=== PATIENT | male | born 1960 | race Caucasian/White ===

== ENCOUNTER 2021-04-26 16:10 | Outpatient (CLI) | payer OTHER, SELFPAY ==
[2021-04-26 17:35] LABS: Erythrocyte Sedimentation Rate 1 mm/hr (0-20)
[2021-04-26 17:37] LABS: Absolute Lymphocyte Count 2.39 X10^3/uL (0.83-4.51); Absolute Neutrophil Count 4.9 X10^3/uL (2.0-7.7); Basophil# 0.06 X10^3/uL; Basophil% 0.7 % (0-1); Eosinophil# 0.29 X10^3/uL; Eosinophils% 3.5 % (0-5); Hematocrit 39.9 % (40-54); Hemoglobin 13.9 g/dL (13.0-16.5); Lymphocyte # 2.39 X10^3/ul (0.83-4.51); Lymphocyte % 28.7 % (19-41); Mean Corp Hgb Conc 34.8 g/dL (32-36); Mean Corpuscular Hgb 31.4 pg (27.0-32.0); Mean Corpuscular Volume 90.1 fL (80-94); Mean Platelet Vol. 11.4 fl (6.2-12.0); Monocyte# 0.68 X10^3/uL; Monocyte% 8.2 % (0-10); NRBC Flagged by Analyzer 0 % (0-5); Neutrophil # 4.87 X10^3/uL (2.7-7.7); Neutrophil % 58.4 % (47-70); Platelet Count 226 K/mm3 (150-450); RBC Distribution Width CV 12.2 % (11.6-14.6); RBC Distribution Width SD 39.8 fl (35.1-43.9); Red Blood Count 4.43 M/mm3 (4.6-6.2); White Blood Count 8.3 K/mm3 (4.4-11.0)
[2021-04-26 17:39] LABS: ALB/GLOB Ratio 0.9 RATIO (0.9-2.4); AST(SGOT) 19 U/L (15-37); Alanine Aminotransfer ALT/SGPT 23 U/L (16-61); Albumin, Serum 3.6 g/dL (3.2-5.0); Alkaline Phosphatase 61 U/L (45-117); Anion Gap 4 (5-15); BUN 9 mg/dL (7-18); BUN/Creat Ratio 10.7 RATIO (10-20); CRP < 2.90 mg/L (0.0-3.0); Calcium,Total 8.9 mg/dL (8.5-10.1); Chloride 104 mmol/L (98-107); Creatinine, Serum 0.84 mg/dL (0.70-1.30); EST Glomerular Filtration Rate 99 mL/min (>60); Est Glom Filt Rate - Afr Amer 120 mL/min (>60); Glucose 84 mg/dL (74-106); Potassium 3.7 mmol/L (3.5-5.1); Protein, Total 7.6 g/dL (6.4-8.2); Sodium Level 137 mmol/L (136-145); Thyroid Stim Hormone (TSH) 3.04 uIU/mL (0.358-3.74)
[2021-04-28 16:11] LABS: Endomysial Antibody IgA Negative (Negative)
[2021-04-28 19:09] LABS: Immunoglobulin A 280 mg/dL (61-437); t-Transglutaminase IgA <2 U/mL (0-3)
== END 2021-04-26 23:59 | disposition home or self-care (01) ==
LOC: LAB 16:13
PROVIDERS: PCP Student in an Organized Health Care Education/Training Program; Referring Provider Nurse Practitioner Adult Health; Visit Provider Nurse Practitioner Adult Health
DX: K52.9 Noninfective gastroenteritis and colitis, unspecified (principal)
CPT/HCPCS: 36415; 80053; 82784; 83516; 84443; 85025; 85652; 86140; 86255

== ENCOUNTER 2021-04-28 15:38 | Outpatient (CLI) | payer OTHER, SELFPAY | END 2021-04-28 23:59 | disposition home or self-care (01) | LOC: LAB 15:39 | PROVIDERS: Nurse Practitioner Adult Health; PCP Student in an Organized Health Care Education/Training Program; Visit Provider Internal Medicine Gastroenterology | DX: K52.9 Noninfective gastroenteritis and colitis, unspecified (principal) | CPT/HCPCS: 36415 ==

== ENCOUNTER 2021-05-23 17:01 | Outpatient (CLI) | payer OTHER, SELFPAY ==
[2021-05-26 18:41] LABS: Calprotectin, Stool 20 ug/g (0-120)
== END 2021-05-23 23:59 | disposition home or self-care (01) ==
LOC: LABSPEC 17:02
PROVIDERS: PCP Student in an Organized Health Care Education/Training Program; Visit Provider Nurse Practitioner Adult Health
DX: K52.9 Noninfective gastroenteritis and colitis, unspecified (principal)
CPT/HCPCS: 83630; 83993; 87493

== ENCOUNTER 2021-07-04 08:31 | Day surgery (SDC) | payer OTHER, SELFPAY ==
[2021-07-04] VITALS (7 sets, daily range): BP systolic 104–140; BP diastolic 80–91; PULSE 55–70; RESP 16; TEMP 36.2–37.1; O2SAT 100; BMI 22.1
--- NOTE | 2021-07-04 | COLBX_PTH ---
PATIENT: PRECIOUS LIAO LOC: [facility] U#:[id number] AGE/SX: 61/M ROOM: RE07/04/[address]: Dr. Jesse Weller DO : 1960 BED: DIS: 07/04/2021 SPEC #: [id number] RECD: 07/04/21 13:45 STATUS: ZHENG NALDO #: [id number] NAAV: 07/04/21 00:[address]: Jesse Weller DEPT: SURGICAL PATHOLOGY RECD BY: Scott Smith ENTERED: 07/05/21 07:57 SP TYPE: COLON BX OTHR DR: Dr. Franko Mann DO Tissues: A - Duodenum, NOS B - Gastric mucous membrane C - Esophageal mucous membrane D - Ileum, NOS E - COLON BIOPSY Procedures: Trichrome (control) Special Stain Group II Surgery Specimen Level IV Alcian Blue/PAS (control) HEADER OPERATION: Colonoscopy with biopsy, [place] [place] DIAGNOSIS: Chronic diarrhea, Crohn?s disease, GERD TISSUE SUBMITTED: A ? Duodenum biopsy, B ? Gastric body biopsy, C ? Distal esophagus biopsy, D ? Terminal ileum, E ? Random colon MICROSCOPIC DIAGNOSIS A. Duodenum, biopsy: Fragments of duodenal mucosa, no pathologic diagnosis. B. Gastric body, biopsy: Mild gastritis. See microscopic description and comment. C. 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 Chronic inflammation. Negative for dysplasia. See comment. D. Terminal ileum, biopsy: A fragment of small intestinal mucosa, no pathologic diagnosis. E. Colon, random biopsy: Fragments of colonic mucosa with changes consistent with collagenous colitis. See comment. SJ:sharda 07/06/2021 COMMENT B. The results of immunohistochemistry for Helicobacter pylori will be reported separately ([id number]). C. Immunohistochemistry ([id number]) for P53 and Ki-67 will be performed and results will be reported separately. Alcian blue/PAS stain with matched control is used in the evaluation of the specimen. E. Trichrome stain with matched control is used in the evaluation of the specimen and shows diffuse thickening of subepithelial collagen band. MICROSCOPIC DESCRIPTION Slides are reviewed. B. The specimen shows fragments of gastric mucosa with chronic inflammatory cell infiltrates in the lamina propria consisting of lymphocytes and plasma cells, consistent with mild chronic gastritis. GROSS DESCRIPTION A - Received in fixative is one container labeled with the patient's name and designated duodenum biopsy. The specimen consists of multiple irregular fragments of light echeverria soft tissue that in aggregate measure 1.2 x 0.4 x 0.1 cm. The specimen is totally submitted in one cassette. B - Received in fixative is one container labeled with the patient's name and designated gastric body biopsy. The specimen consists of multiple irregular fragments of light echeverria soft tissue that in aggregate measure 1.5 x 0.3 x 0.1 cm. The specimen is totally submitted in one cassette. C - Received in fixative is one container labeled with the patient's name and designated distal esophagus biopsy. The specimen consists of two irregular fragments of light echeverria soft tissue that in aggregate measure 0.6 x 0.3 x 0.1 cm. The specimen is totally submitted in one cassette. D - Received in fixative is one container labeled with the patient's name and designated terminal ileum biopsy. The specimen consists of one irregular fragment of light echeverria soft tissue that measures 0.5 x 0.3 x 0.1 cm. The specimen is totally submitted in one cassette. E - Received in fixative is one container labeled with the patient's name and designated random colon biopsy. The specimen consists of multiple irregular fragments of light echeverria soft tissue that in aggregate measure 2 x 0.5 x 0.1 cm. The specimen is totally submitted in one cassette. / IVY:sharda 07/05/2021 TC:3 CPT: 99712 x5, 42858 x2
[2021-07-04] MEDS: Lactated Ringers 1,000 ML 15 ML IV (09:09)
--- NOTE | 2021-07-04 09:29 | PCM.HP.BLA ---
History and Physical Date of Admission: 07/04/21 NILA LIAO, is a 61 M who presents to the office today for diarrhea that began approx 10 wks ago. Only watery stools since this began suddenly. He thought it might have been due to a meal he ate at a restaurant that contained oil, he follows a vegan diet and consumes almost no oil. He has had urgency associated with the diarrhea. He did have some nighttime diarrhea initially. He had mild nausea as well as bloating, gas and some abdominal pain. All the symptoms other than the watery stool have resolved once he cut out gluten from his diet. Diarrhea no longer related to meals since he went gluten-free. No prior history of chronic diarrhea. He has vomited once during the past 10 weeks, that was probably due to food poisoning he thinks. No hematochezia or melena. He recently had a negative Cologuard. He tried Imodium about 7 weeks ago, no relief of his symptoms. He is not having any acid reflux, heartburn, dysphagia. He has a prior history of difficulty swallowing; that was evaluated years ago at the [facility]. He was told to take Nexium. No issues with dysphagia over the past 5 years, he attributes that to changes in his diet and lifestyle. He intentionally lost 50 pounds over the last year and a half. There is a strong family history of inflammatory bowel disease; multiple relatives on the maternal side have had Crohn's disease. ROS Const Constitutional: Positive for fatigue; No fever(s), headache(s), weight change, sleep problems, abnormal sleep pattern or change in appetite ENT ENT: No headache(s), difficulty swallowing, hoarseness or sore throat Resp Respiratory: No cough, hemoptysis or shortness of breath Cardio Cardiology: No chest pain at rest or generalized swelling Gastro GI: Positive for abdominal pain, bloating, change in bowel habits, diarrhea and nausea/dyspepsia; No belching, change in stool character, coffee ground emesis, constipation, cramping, heartburn, difficulty swallowing, feeling full early, excessive flatus, incontinent of stools, Vomiting blood/hematemesis, Blood in stool, loose stools, Black,tarry stools, pain with swallowing or vomiting Musc Musculoskeletal: No joint pain, back pain, joint swelling, numbness or tingling Skin Skin: Positive for rash (sees dermatology); No itchy eyes Neuro Neurology: No behavioral changes, confusion, headache(s), numbness or tingling Psych Psychiatric: No abnormal sleep pattern, No anxiety, No behavioral changes, No change in appetite, No confusion and No depression Endo Endocrine: Positive for fatigue; No cold intolerance, heat intolerance, increased thirst/drinking or weight change Aller/Imm Allergy/Immunologic: No food intolerance or itchy eyes Zak/Lymp Hematologic/Lymphatic: No easy bleeding, easy bruising or enlarged lymph nodes Exam Const General: cooperative, healthy appearing, comfortable, no acute distress, well developed and well groomed HENMT Head: normal to inspection Neck Neck: normal visual inspection and supple Chest Chest palpation & inspection: normal inspection of the chest Resp Effort & Inspection: normal respiratory effort GI Inspection: normal to inspection Auscultation: normal bowel sounds Palpation: soft and tender (minimally tender lower abd) Extrem General: no pedal edema Quality Reporting Tobacco Screening ([facility] 138) Smoking Status: Current some day smoker Assessment and Plan Assessment and Plan (1) Chronic diarrhea: Status: Chronic (2) FH: Crohn's disease: Status: Acute (3) Hx of gastroesophageal reflux (GERD): Status: Acute Orders: Orders: Comprehensive Metabolic Profil Today K52.9 CRP Today K52.9 Thyroid Stim Hormone (TSH) Today K52.9 CBC W/Diff, Automated Today K52.9 Erythrocyte Sed Rate Today K52.9 Calprotectin, Stool Today K52.9 Ova and Parasites 8623 Today K52.9 CDIFF (PCR) Today K52.9 ENTERIC PATHOGEN PANEL STOOL Today K52.9 Stool Lactoferrin/WBC Today K52.9 Celiac Disease Profile Today K52.9 Giardia Lamblia, Stool EIA Today K52.9 Miscellaneous Lab Procedure Today K52.9 Plan: 61-year-old otherwise healthy male with 10 weeks of watery diarrhea. His other GI complaints improved significantly with a gluten-free diet. Differential diagnosis includes infectious diarrhea, celiac disease, inflammatory bowel disease, microscopic colitis. Patient will get blood work done today, stool tests ordered. He is scheduled for upper and lower endoscopies in early June. I will call him with lab results, will treat accordingly or do further evaluation as needed. I have re-examined the patient. There are no clinical changes since date of exam.
--- NOTE | 2021-07-04 09:45 | IMM_PTH ---
PATIENT: PRECIOUS LIAO LOC: [facility] U#:[id number] AGE/SX: 61/M ROOM: RE07/04/[address]: Dr. Jesse Weller DO : 1960 BED: DIS: 07/04/2021 SPEC #: [id number] RECD: 07/05/21 08:44 STATUS: ZHENG REWilfredo #: [id number] NAVA: 07/04/21 09:[address]: Jesse Weller DEPT: IMMUNOHISTOCHEMISTRY RECD BY: Jennifer Madison ENTERED: 07/05/21 08:46 SP TYPE: IMMUNO OTHR DR: Dr. Franko Mann DO Tissues: B - Stomach, NOS C - Esophagus, NOS Procedures: H Pylori (initial) P53 (initial) KI-67 (add) PHYSICIAN & INSTITUTION [place] [id number] SPECIMEN INFORMATION: Tissue Source: B ? Gastric body biopsy, C ? Distal esophagus biopsy Clinical Info: Chronic diarrhea, Crohn?s disease, GERD Specimen Number: [id number] B & C CPT code: 70380 x2, 10232 METHODOLOGY: Deparaffinized sections of prefer/formalin-fixed tissue or PAP/DQ stained slides are incubated with monoclonal/polyclonal antibodies/oligonucleotide probes. Localization is made via biotin free immunoperoxidase method. Appropriate controls are performed and reacted as expected. Results on target cell population are indicated in the following table: RESULTS: ANTIBODY / CLONE RESULT Block B H Pylori (polyclonal) negative Block C P53 (DO-7) negative Ki-67 (30-9) positive, very low These tests were developed and their performance characteristics determined by [facility]. They may not have been cleared or approved by the U.S. Food and Drug Administration. The FDA has determined that such clearance or approval is not necessary. The above immunohistochemical/dualISH markers are ordered and reviewed by the Pathologist. INTERPRETATION: B. Gastric body, biopsy: Negative for Helicobacter pylori organisms. C. Distal esophagus, biopsy: Negative for dysplasia. SJ:sharda 07/07/2021
--- NOTE | 2021-07-04 10:24 | OP.EGD_ITS ---
Patient Name: Lexa Chavez Procedure Date: 07/04/2021 9:27 AM Date of : 1960 Age: 61 Procedure: Upper GI endoscopy Indications: Functional Dyspepsia Providers: Jesse Weller DO Referring MD: Franko Mann Medicines: Monitored Anesthesia Care Patient Profile: This is a 61 year old male. Refer to note in patient chart for documentation of history and physical. Patient has symptoms of chronic dyspepsia and chronic nausea. Complications: No immediate complications. Procedure: Pre-Anesthesia Assessment: - Prior to the procedure, a History and Physical was performed, and patient medications and allergies were reviewed. The patient is competent. The risks and benefits of the procedure and the sedation options and risks were discussed with the patient. All questions were answered and informed consent was obtained. Patient identification and proposed procedure were verified by the physician in the pre-procedure area. Mental Status Examination: alert and oriented. Airway Examination: normal oropharyngeal airway and neck mobility. Respiratory Examination: clear to auscultation. CV Examination: normal. Prophylactic Antibiotics: The patient does not require prophylactic antibiotics. Prior Anticoagulants: The patient has taken no previous anticoagulant or antiplatelet agents. ASA Grade Assessment: II - A patient with mild systemic disease. After reviewing the risks and benefits, the patient was deemed in satisfactory condition to undergo the procedure. The anesthesia plan was to use moderate sedation / analgesia (conscious sedation). Immediately prior to administration of medications, the patient was re-assessed for adequacy to receive sedatives. The heart rate, respiratory rate, oxygen saturations, blood pressure, adequacy of pulmonary ventilation, and response to care were monitored throughout the procedure. The physical status of the patient was re-assessed after the procedure. After obtaining informed consent, the endoscope was passed under direct vision. Throughout the procedure, the patient's blood pressure, pulse, and oxygen saturations were monitored continuously. The colonoscope was introduced through the mouth, and advanced to the second part of duodenum. The upper GI endoscopy was accomplished without difficulty. The patient tolerated the procedure well. Scope In: 9:44:29 AM Scope Out: 9:51:36 AM Total Procedure Duration Time 0 hours 7 minutes 7 seconds Findings: The Z-line was irregular and was found 39 cm from the incisors. Biopsies were taken with a cold forceps for histology. Verification of patient identification for the specimen was done. Estimated blood loss was minimal. Patchy mild mucosal variance characterized by congestion was found in the gastric body. Biopsies were taken with a cold forceps for histology. Verification of patient identification for the specimen was done. Estimated blood loss was minimal. Patchy moderately erythematous mucosa without active bleeding and with no stigmata of bleeding was found in the first portion of the duodenum and in the second portion of the duodenum. Biopsies were taken with a cold forceps for histology. Verification of patient identification for the specimen was done. Estimated blood loss was minimal. Impression: - Z-line irregular, 39 cm from the incisors. Biopsied. - Gastric mucosal variant. Biopsied. - Erythematous duodenopathy. Biopsied. Recommendation: - Discharge patient to home. - Resume previous diet. - Continue present medications. - Await pathology results. - Repeat upper endoscopy in 1 year for surveillance based on pathology results. - Return to GI office. Procedure Code(s): --- Professional --- 85583, Esophagogastroduodenoscopy, flexible, transoral; with biopsy, single or multiple CPT copyright 2017 [employer]. All rights reserved. The codes documented in this report are preliminary and upon french edge operator review may be revised to meet current compliance requirements. Jesse Weller DO 07/04/2021 10:23:42 AM This report has been signed electronically. Number of Addenda: 1 Note Initiated On: 07/04/2021 9:27 AM Addendum Number: 1 Addendum Date: 11/25/2021 6:26:56 AM MAC was used as sedation for this procedure. Jesse Weller DO 11/25/2021 6:27:00 AM This report has been signed electronically.
--- NOTE | 2021-07-04 10:25 | OP.CCLET_ITS ---
11/25/2021 Franko Mann [address] [place] [address] Re : Upper GI endoscopy procedure for Lexa Chavez Dear Dr. Mann This procedure was performed on Sunday, July 04, 2021. My impressions and recommendations are as follows: Impressions : - Z-line irregular, 39 cm from the incisors. Biopsied. - Gastric mucosal variant. Biopsied. - Erythematous duodenopathy. Biopsied. Recommendations : - Discharge patient to home. - Resume previous diet. - Continue present medications. - Await pathology results. - Repeat upper endoscopy in 1 year for surveillance based on pathology results. - Return to GI office. My findings are described in the full procedure note, which is enclosed. If I can be of further assistance, please feel free to contact me at . Sincerely, Jesse Weller, 07/04/2021 10:23:42 AM This report has been signed electronically.
--- NOTE | 2021-07-04 10:37 | OP.COLON_ITS ---
Patient Name: Lexa Chavez Procedure Date: 07/04/2021 9:53 AM Date of : 1960 Age: 61 Procedure: Colonoscopy Indications: Evaluation of unexplained GI bleeding, Unexplained iron deficiency anemia Providers: Jesse Weller DO Referring MD: Franko Mann Patient Profile: This is a 61 year old male. Refer to note in patient chart for documentation of history and physical. Patient has symptoms of chronic dyspepsia and chronic nausea. Last Colonoscopy: several years ago. Complications: No immediate complications. Procedure: Pre-Anesthesia Assessment: - Prior to the procedure, a History and Physical was performed, and patient medications and allergies were reviewed. The patient is competent. The risks and benefits of the procedure and the sedation options and risks were discussed with the patient. All questions were answered and informed consent was obtained. Patient identification and proposed procedure were verified by the physician in the pre-procedure area. Mental Status Examination: alert and oriented. Airway Examination: normal oropharyngeal airway and neck mobility. Respiratory Examination: clear to auscultation. CV Examination: normal. Prophylactic Antibiotics: The patient does not require prophylactic antibiotics. Prior Anticoagulants: The patient has taken no previous anticoagulant or antiplatelet agents. ASA Grade Assessment: II - A patient with mild systemic disease. After reviewing the risks and benefits, the patient was deemed in satisfactory condition to undergo the procedure. The anesthesia plan was to use moderate sedation / analgesia (conscious sedation). Immediately prior to administration of medications, the patient was re-assessed for adequacy to receive sedatives. The heart rate, respiratory rate, oxygen saturations, blood pressure, adequacy of pulmonary ventilation, and response to care were monitored throughout the procedure. The physical status of the patient was re-assessed after the procedure. After I obtained informed consent, the scope was passed under direct vision. Throughout the procedure, the patient's blood pressure, pulse, and oxygen saturations were monitored continuously. The colonoscope was introduced through the anus and advanced to the terminal ileum. The colonoscopy was performed without difficulty. The patient tolerated the procedure well. The quality of the bowel preparation was good. Scope In: 9:55:12 AM Scope Withdrawal Time 0 hours 12 minutes 45 seconds Scope Out: 10:17:01 AM Total Procedure Duration Time 0 hours 21 minutes 49 seconds Findings: Hemorrhoids were found on perianal exam. An area of mildly congested mucosa was found in the sigmoid colon, at the splenic flexure, at the hepatic flexure and in the cecum. Biopsies were taken with a cold forceps for histology. Verification of patient identification for the specimen was done. Estimated blood loss was minimal. The terminal ileum appeared normal. Biopsies were taken with a cold forceps for histology. Verification of patient identification for the specimen was done. Estimated blood loss was minimal. Impression: - Hemorrhoids found on perianal exam. - Congested mucosa in the sigmoid colon, at the splenic flexure, at the hepatic flexure and in the cecum. Biopsied. - The examined portion of the ileum was normal. Biopsied. Recommendation: - Written discharge instructions were provided to the patient. - The signs and symptoms of potential delayed complications were discussed with the patient. - Patient has a contact number available for emergencies. - Return to normal activities tomorrow. - Resume previous diet. - Continue present medications. - Await pathology results. - Repeat colonoscopy in 2 months for surveillance. - Return to GI office in 1 week. Procedure Code(s): --- Professional --- 46971, Colonoscopy, flexible; with biopsy, single or multiple CPT copyright 2017 [employer]. All rights reserved. The codes documented in this report are preliminary and upon cosmetology professor review may be revised to meet current compliance requirements. Jesse Weller DO 07/04/2021 10:36:49 AM This report has been signed electronically. Number of Addenda: 1 Note Initiated On: 07/04/2021 9:53 AM Addendum Number: 1 Addendum Date: 11/25/2021 6:27:07 AM MAC was used as sedation for this procedure. Jesse Weller DO 11/25/2021 6:27:13 AM This report has been signed electronically.
--- NOTE | 2021-07-04 10:38 | OP.CCLET_ITS ---
11/25/2021 Franko Mann [address] [place] [address] Re : Colonoscopy procedure for Lexa Chavez Dear Dr. Mann This procedure was performed on Sunday, July 04, 2021. My impressions and recommendations are as follows: Impressions : - Hemorrhoids found on perianal exam. - Congested mucosa in the sigmoid colon, at the splenic flexure, at the hepatic flexure and in the cecum. Biopsied. - The examined portion of the ileum was normal. Biopsied. Recommendations : - Written discharge instructions were provided to the patient. - The signs and symptoms of potential delayed complications were discussed with the patient. - Patient has a contact number available for emergencies. - Return to normal activities tomorrow. - Resume previous diet. - Continue present medications. - Await pathology results. - Repeat colonoscopy in 2 months for surveillance. - Return to GI office in 1 week. My findings are described in the full procedure note, which is enclosed. If I can be of further assistance, please feel free to contact me at . Sincerely, Jesse Weller, 07/04/2021 10:36:49 AM This report has been signed electronically.
== END 2021-07-04 11:16 | disposition home or self-care (01) ==
LOC: EN 08:33 → AC 08:56
PROVIDERS: PCP Student in an Organized Health Care Education/Training Program; Referring Provider Student in an Organized Health Care Education/Training Program; Visit Provider Internal Medicine Gastroenterology
PROC: 0DJD8ZZ Inspection of Lower Intestinal Tract, Via Natural or Artificial Opening Endoscopic (ICD-10-PCS; CPT 45378; principal; 2021-07-04 09:40)
DX: K52.831 Collagenous colitis (principal); K50.90 Crohn's disease, unspecified, without complications; K22.70 Barrett's esophagus without dysplasia; K29.50 Unspecified chronic gastritis without bleeding; K64.9 Unspecified hemorrhoids; K63.89 Other specified diseases of intestine; K31.89 Other diseases of stomach and duodenum; F17.200 Nicotine dependence, unspecified, uncomplicated; K30 Functional dyspepsia; F12.90 Cannabis use, unspecified, uncomplicated; Z79.899 Other long term (current) drug therapy
CPT/HCPCS: 45380; 43239; 87426; 88305; 88313; 88341; 88342; J7120; J2405

== ENCOUNTER 2022-07-25 12:31 | Day surgery (SDC) | payer OTHER, SELFPAY ==
--- NOTE | 2022-07-25 | IMM_PTH ---
PATIENT: PRECIOUS LIAO LOC: [facility] U#:[id number] AGE/SX: 62/M ROOM: RE07/25/[address]: Dr. Jesse Weller DO : 1960 BED: DIS: 07/25/2022 SPEC #: [id number] RECD: 07/27/22 13:18 STATUS: ZHENG REQ #: [id number] NAVA: 07/25/22 00:[address]: Jesse Weller DEPT: IMMUNOHISTOCHEMISTRY RECD BY: Jennifer Madison ENTERED: 07/27/22 13:19 SP TYPE: IMMUNO OTHR DR: Dr. Franko Mnan DO Tissues: A - Esophagus, NOS Procedures: P53 (initial) KI-67 (add) PHYSICIAN & INSTITUTION [place] [id number] SPECIMEN INFORMATION: Tissue Source: A ? Distal esophagus Clinical Info: Collagenous colitis Specimen Number: [id number] CPT code: 97615, 44246 METHODOLOGY: Deparaffinized sections of prefer/formalin-fixed tissue or PAP/DQ stained slides are incubated with monoclonal/polyclonal antibodies/oligonucleotide probes. Localization is made via biotin free immunoperoxidase method. Appropriate controls are performed and reacted as expected. Results on target cell population are indicated in the following table: RESULTS: ANTIBODY / CLONE RESULT Block A P53 (DO-7) negative, wild type pattern Ki-67 (30-9) positive, low These tests were developed and their performance characteristics determined by [facility]. They may not have been cleared or approved by the U.S. Food and Drug Administration. The FDA has determined that such clearance or approval is not necessary. The above immunohistochemical/dualISH markers are ordered and reviewed by the Pathologist. INTERPRETATION: A. Distal esophagus, biopsy: No evidence of dysplasia. AM:sharda 07/28/2022
--- NOTE | 2022-07-25 | ESO_PTH ---
PATIENT: PRECIOUS LIAO LOC: [facility] U#:[id number] AGE/SX: 62/M ROOM: RE07/25/[address]: Dr. Jesse Weller DO : 1960 BED: DIS: 07/25/2022 SPEC #: [id number] RECD: 07/25/22 15:14 STATUS: ZHENG NALDO #: [id number] NAVA: 07/25/22 00:[address]: Jesse Weller DEPT: SURGICAL PATHOLOGY RECD BY: Scott Smith ENTERED: 07/26/22 09:38 SP TYPE: IGNACIA STOREY DR: Dr. Franko Mann DO Tissues: A - Esophagus, NOS B - Duodenum, NOS C - Ileum, NOS D - COLON BIOPSY Procedures: Trichrome (control) Special Stain Group II Surgery Specimen Level IV Alcian Blue/PAS (control) HEADER OPERATION: Colonoscopy, EGD ([facility] [place]), biopsy PRE-OP DIAGNOSIS: Collagenous colitis TISSUE SUBMITTED: A ? Distal esophagus biopsy, B ? Duodenum biopsy, C ? Terminal ileum, D ? Random colonic biopsies MICROSCOPIC DIAGNOSIS A. Distal esophagus, biopsy: Gastroesophageal junction with mild chronic inflammation. Extensive goblet cell metaplasia consistent with Groves's esophagus. No evidence of dysplasia. See comment. B. Duodenum, biopsy: No pathologic change. C. Terminal ileum, biopsy: No pathologic change. D. Colon, random biopsy: Consistent with collagenous colitis. See comment. AM:sharda 07/27/2022 COMMENT A. Alcian blue/PAS stain with matched control supports the above diagnosis. Immunohistochemistry ([id number]) for P53 and Ki-67 will be performed and results will be reported separately. B. Trichrome stain with matched control supports the above diagnosis. MICROSCOPIC DESCRIPTION Slides are reviewed. GROSS DESCRIPTION A - Received in fixative is one container labeled with the patient's name and designated distal esophagus biopsy. The specimen consists of two irregular fragments of light echeverria soft tissue that in aggregate measure 0.8 x 0.4 x 0.1 cm. The specimen is totally submitted in one cassette. B - Received in fixative is one container labeled with the patient's name and designated duodenum biopsy. The specimen consists of multiple irregular fragments of light echeverria soft tissue that in aggregate measure 1.0 x 0.3 x 0.1 cm. The specimen is totally submitted in one cassette. C - Received in fixative is one container labeled with the patient's name and designated terminal ileum biopsy. The specimen consists of two irregular fragments of light echeverria soft tissue that in aggregate measure 0.8 x 0.5 x 0.1 cm. The specimen is totally submitted in one cassette. D - Received in fixative is one container labeled with the patient's name and designated random colon biopsy. The specimen consists of multiple irregular fragments of light echeverria soft tissue that in aggregate measure 2.0 x 0.5 x 0.1 cm. The specimen is totally submitted in one cassette. / SJ:rg 07/26/2022 TC:3 CPT: 21120 x4
[2022-07-25 12:50] VITALS: BP 109/79; PULSE 66; RESP 16; TEMP 36.8; O2SAT 100; BMI 23.0
[2022-07-25] MEDS: Lactated Ringers 1,000 ML 15 ML IV (12:53)
--- NOTE | 2022-07-25 13:33 | HP.PCM_ITS ---
History and Physical Date of Admission: 07/25/22 61 M who presents to the office today for f/u diarrhea due to collagenous colitis.? Diarrhea had been well controlled on colestipol 1 g twice daily, then he had a viral illness 1.5 months ago which flared up with diarrhea.? He did some research, and increased colestipol to 2 g twice daily which he reports is very effective.? He is wondering about 5 g packet of colestipol instead of having to take 4 pills a day.? His weight is stable.? He eats a healthy diet and exercises regularly. Lexa established with this clinic .03.19 for evaluation of watery and urgent diarrhea with onset ten weeks prior. Initial symptoms included nausea, bloating, flatulence and abdominal pain; these had resolved by time of presentation. History of dysphagia evaluated by [facility] who started him on Nexium. Dysphagia symptoms resolved which he attributes to diet and lifestyle changes. Biochemical workup .03.19 CBC, CMP, CRP, TSH, celiac all WNL. Stool testing calprotectin, lactoferrin, C.Difficile WNL. Ova/parasites and enteric pathogens not performed r/t inadequate amount for testing. EGD and colonoscopy performed 07.04.21. EGD found irregular Z-line 39cm from incisors; distal esophageal inflammation with Groves?s esophagus changes without dysplasia; gastric mucosal variant (gastritis); erythematous duodenopathy. Colonoscopy found hemorrhoids on perianal exam; congested mucosa of sigmoid colon, splenic flexure, hepatic flexure and cecum with pathology changes consistent with collagenous colitis. ROS Const Constitutional: Positive for fatigue; No fever(s), frequent falls, headache(s) or weight change ENT ENT: No headache(s) or difficulty swallowing Cardio Cardiology: No leg pain with exertion Gastro GI: Positive for bloating, change in bowel habits, diarrhea and excessive flat us; No abdominal pain, constipation, heartburn, difficulty swallowing, Vomiting blood/hematemesis, Blood in stool, nausea/dyspepsia or vomiting Musc Musculoskeletal: No abnormal gait, joint pain, back pain, joint swelling, muscle cramps, muscle weakness, numbness, stiffness, tingling, Arthritis, sciatica, leg pain at night or leg pain with exertion Skin Skin: No dry skin, lesions, itchy eyes or rash Neuro Neurology: No abnormal gait, dizziness, frequent falls, headache(s), numbness, tingling, tremor(s), Increased tone in limbs, paralysis or seizures Psych Psychiatric: No anxiety, No depression, No paranoia, No Behavioral Problems, No Compulsive Behavior, No hyperactivity, No inattentiveness, No obsessions/compulsions, No Temper Tantrums and No suicidal ideation Endo Endocrine: Positive for fatigue; No weight change Aller/Imm Allergy/Immunologic: No itchy eyes Zak/Lymp Hematologic/Lymphatic: No easy bleeding or easy bruising Exam Const General: cooperative and healthy appearing Nutritional Appearance: average body habitus Orientation: alert, awake and oriented x3 Quality Reporting Tobacco Screening ([facility] 138) Smoking Status: Current some day smoker Assessment and Plan Assessment and Plan (1) Collagenous colitis: ?Status:?Acute ?Plan: 61-year-old male with diarrhea due to collagenous colitis which is controlled with 2 g of colestipol twice daily.? He would like to try the 5 g packet of colestipol so prescription is provided He will undergo an EGD and colonoscopy due to refractory symptoms and worsening chronic diarrhea despite traditional therapy for severe collagenous colitis. He will also undergo an upper endoscopy because of a history of gastroesophageal reflux disease. He was explained alternatives, risk, benefits include not withstanding bleeding, infection, sepsis, perforation, need for emergent surgery . He will have an ASA of 3.
[2022-07-25 14:13] VITALS: BP 109/79; BP 90/48; PULSE 66; RESP 16; TEMP 36.2; O2SAT 100
[2022-07-25 14:14] VITALS: BP 109/79; BP 87/48; PULSE 64; RESP 16; O2SAT 100
--- NOTE | 2022-07-25 14:19 | OP.CCLET_ITS ---
07/25/2022 Franko Mann [address] [place] [address] Re : Upper GI endoscopy procedure for Lexa Chavez Dear Dr. Mann This procedure was performed on Monday, July 25, 2022. My impressions and recommendations are as follows: Impressions : - Esophageal mucosal changes consistent with short-segment Groves's esophagus. Biopsied. - Small hiatal hernia. - Erythematous duodenopathy. Biopsied. Recommendations : - Discharge patient to home. - Resume previous diet. - Continue present medications. - Await pathology results. - Repeat upper endoscopy in 1 year for surveillance. - Pantoprazole 40 mg daily My findings are described in the full procedure note, which is enclosed. If I can be of further assistance, please feel free to contact me at . Sincerely, Jesse Weller, 07/25/2022 2:18:54 PM This report has been signed electronically.
--- NOTE | 2022-07-25 14:19 | OP.EGD_ITS ---
Patient Name: Leax Chavez Procedure Date: 07/25/2022 1:36 PM Date of : 1960 Age: 62 Procedure: Upper GI endoscopy Indications: Functional Dyspepsia, Follow-up of Groves's esophagus Providers: Jesse Weller DO Referring MD: Jesse Weller DO Medicines: Monitored Anesthesia Care Patient Profile: This is a 62 year old male. Refer to note in patient chart for documentation of history and physical. Patient has symptoms. He is status post EGD for Groves's biopsy one year ago. Complications: No immediate complications. Procedure: Pre-Anesthesia Assessment: - Prior to the procedure, a History and Physical was performed, and patient medications and allergies were reviewed. The risks and benefits of the procedure and the sedation options and risks were discussed with the patient. All questions were answered and informed consent was obtained. Patient identification and proposed procedure were verified by the physician in the pre-procedure area. Mental Status Examination: alert and oriented. Airway Examination: normal oropharyngeal airway and neck mobility. Respiratory Examination: clear to auscultation. CV Examination: normal. Prophylactic Antibiotics: The patient does not require prophylactic antibiotics. Prior Anticoagulants: The patient has taken no previous anticoagulant or antiplatelet agents. After reviewing the risks and benefits, the patient was deemed in satisfactory condition to undergo the procedure. The anesthesia plan was to use monitored anesthesia care (MAC). Immediately prior to administration of medications, the patient was re-assessed for adequacy to receive sedatives. The heart rate, respiratory rate, oxygen saturations, blood pressure, adequacy of pulmonary ventilation, and response to care were monitored throughout the procedure. The physical status of the patient was re-assessed after the procedure. After obtaining informed consent, the endoscope was passed under direct vision. Throughout the procedure, the patient's blood pressure, pulse, and oxygen saturations were monitored continuously. The colonoscope was introduced through the mouth, and advanced to the second part of duodenum. The upper GI endoscopy was accomplished without difficulty. The patient tolerated the procedure well. Scope In: 1:44:54 PM Scope Out: 1:49:06 PM Total Procedure Duration Time 0 hours 4 minutes 12 seconds Findings: There were esophageal mucosal changes consistent with short-segment Groves's esophagus present in the lower third of the esophagus. There was also mild LA grade a erosive esophagitis seen. The maximum longitudinal extent of these mucosal changes was 2 cm in length. Mucosa was biopsied with a cold forceps for histology in a targeted manner at intervals of 1 cm in the lower third of the esophagus. One specimen bottle was sent to pathology. Verification of patient identification for the specimen was done. Estimated blood loss was minimal. A small hiatal hernia was present. No other significant abnormalities were identified in a careful examination of the stomach. Patchy mildly erythematous mucosa without active bleeding and with no stigmata of bleeding was found in the duodenal bulb. Biopsies were taken with a cold forceps for histology. Verification of patient identification for the specimen was done. Estimated blood loss was minimal. Impression: - Esophageal mucosal changes consistent with short-segment Groves's esophagus. Biopsied. - Small hiatal hernia. - Erythematous duodenopathy. Biopsied. Recommendation: - Discharge patient to home. - Resume previous diet. - Continue present medications. - Await pathology results. - Repeat upper endoscopy in 1 year for surveillance. - Pantoprazole 40 mg daily Procedure Code(s): --- Professional --- 14074, Esophagogastroduodenoscopy, flexible, transoral; with biopsy, single or multiple CPT copyright 2017 [employer]. All rights reserved. The codes documented in this report are preliminary and upon smoking tobacco packing machine hand review may be revised to meet current compliance requirements. Jesse Weller DO 07/25/2022 2:18:54 PM This report has been signed electronically. Number of Addenda: 0 Note Initiated On: 07/25/2022 1:36 PM
[2022-07-25 14:20] VITALS: BP 109/79; BP 118/72; PULSE 60; RESP 16; O2SAT 100
--- NOTE | 2022-07-25 14:22 | OP.COLON_ITS ---
Patient Name: Lexa Chavez Procedure Date: 07/25/2022 1:49 PM Date of : 1960 Age: 62 Procedure: Colonoscopy Indications: Chronic diarrhea Providers: Jesse Weller DO Referring MD: Jesse Weller DO Medicines: Monitored Anesthesia Care Patient Profile: This is a 62 year old male. Refer to note in patient chart for documentation of history and physical. Patient has symptoms. He is status post EGD for Groves's biopsy one year ago. He is status post colonoscopy for biopsy one year ago. Last Colonoscopy: 1 year ago. Complications: No immediate complications. Procedure: Pre-Anesthesia Assessment: - Prior to the procedure, a History and Physical was performed, and patient medications and allergies were reviewed. The risks and benefits of the procedure and the sedation options and risks were discussed with the patient. All questions were answered and informed consent was obtained. Patient identification and proposed procedure were verified by the physician in the pre-procedure area. Mental Status Examination: alert and oriented. Airway Examination: normal oropharyngeal airway and neck mobility. Respiratory Examination: clear to auscultation. CV Examination: normal. Prophylactic Antibiotics: The patient does not require prophylactic antibiotics. Prior Anticoagulants: The patient has taken no previous anticoagulant or antiplatelet agents. After reviewing the risks and benefits, the patient was deemed in satisfactory condition to undergo the procedure. The anesthesia plan was to use monitored anesthesia care (MAC). Immediately prior to administration of medications, the patient was re-assessed for adequacy to receive sedatives. The heart rate, respiratory rate, oxygen saturations, blood pressure, adequacy of pulmonary ventilation, and response to care were monitored throughout the procedure. The physical status of the patient was re-assessed after the procedure. After I obtained informed consent, the scope was passed under direct vision. Throughout the procedure, the patient's blood pressure, pulse, and oxygen saturations were monitored continuously. The colonoscope was introduced through the anus and advanced to the terminal ileum. The colonoscopy was performed without difficulty. The patient tolerated the procedure well. The quality of the bowel preparation was adequate. Scope In: 1:50:58 PM Scope Withdrawal Time 0 hours 8 minutes 45 seconds Scope Out: 2:07:47 PM Total Procedure Duration Time 0 hours 16 minutes 49 seconds Findings: The perianal and digital rectal examinations were normal. A few small-mouthed diverticula were found in the recto-sigmoid colon. An area of mildly congested mucosa was found in the descending colon, in the transverse colon and in the ascending colon. Biopsies for histology were taken with a cold forceps from the entire colon for evaluation of microscopic colitis. Verification of patient identification for the specimen was done. Estimated blood loss was minimal. The terminal ileum appeared normal. Biopsies were taken with a cold forceps for histology. Verification of patient identification for the specimen was done. Estimated blood loss was minimal. Impression: - Diverticulosis in the recto-sigmoid colon. - Congested mucosa in the descending colon, in the transverse colon and in the ascending colon. Biopsied. - The examined portion of the ileum was normal. Biopsied. Recommendation: - Discharge patient to home. - Resume previous diet. - Continue present medications. - Await pathology results. - Repeat colonoscopy in 1 year for surveillance. Procedure Code(s): --- Professional --- 00218, Colonoscopy, flexible; with biopsy, single or multiple CPT copyright 2017 [employer]. All rights reserved. The codes documented in this report are preliminary and upon switch operators supervisor review may be revised to meet current compliance requirements. Jesse Weller DO 07/25/2022 2:22:42 PM This report has been signed electronically. Number of Addenda: 0 Note Initiated On: 07/25/2022 1:49 PM
--- NOTE | 2022-07-25 14:23 | OP.CCLET_ITS ---
07/25/2022 Franko Mann [address] [place] [address] Re : Colonoscopy procedure for Lexa Chavez Dear Dr. Mann This procedure was performed on Monday, July 25, 2022. My impressions and recommendations are as follows: Impressions : - Diverticulosis in the recto-sigmoid colon. - Congested mucosa in the descending colon, in the transverse colon and in the ascending colon. Biopsied. - The examined portion of the ileum was normal. Biopsied. Recommendations : - Discharge patient to home. - Resume previous diet. - Continue present medications. - Await pathology results. - Repeat colonoscopy in 1 year for surveillance. My findings are described in the full procedure note, which is enclosed. If I can be of further assistance, please feel free to contact me at . Sincerely, Jesse Weller, 07/25/2022 2:22:42 PM This report has been signed electronically.
[2022-07-25 14:27] VITALS: BP 109/79; BP 120/75; PULSE 58; RESP 16; TEMP 36.2; O2SAT 100
[2022-07-25 14:50] VITALS: BP 109/79
== END 2022-07-25 14:58 | disposition home or self-care (01) ==
LOC: EN 12:32 → AC 12:33
PROVIDERS: PCP Student in an Organized Health Care Education/Training Program; Referring Provider Internal Medicine Gastroenterology; Visit Provider Internal Medicine Gastroenterology
PROC: 0DJD8ZZ Inspection of Lower Intestinal Tract, Via Natural or Artificial Opening Endoscopic (ICD-10-PCS; CPT 45378; principal; 2022-07-25 13:25)
DX: K22.70 Barrett's esophagus without dysplasia (principal); K52.831 Collagenous colitis; F17.200 Nicotine dependence, unspecified, uncomplicated; K57.90 Diverticulosis of intestine, part unspecified, without perforation or abscess without bleeding; K44.9 Diaphragmatic hernia without obstruction or gangrene; Z79.899 Other long term (current) drug therapy; Z87.19 Personal history of other diseases of the digestive system
CPT/HCPCS: 45380; 43239; 88305; 88313; 88341; 88342; J7120; J2405

== ENCOUNTER 2023-07-09 05:29 | Day surgery (SDC) | payer OTHER, SELFPAY ==
--- NOTE | 2023-07-09 | IMM_PTH ---
PATIENT: PRECIOUS LIAO LOC: EN U#:[id number] AGE/SX: 63/M ROOM: RE07/09/[address]: Dr. Jesse Weller DO : 1960 BED: DIS: 07/09/2023 SPEC #: [id number] RECD: 07/11/23 08:37 STATUS: ZHENG REWilfredo #: [id number] NAVA: 07/09/23 00:[address]: Jesse Weller DEPT: IMMUNOHISTOCHEMISTRY RECD BY: Long Jhaveri ENTERED: 07/11/23 08:37 SP TYPE: IMMUNO OTHR DR: Dr. Franko Mann DO Tissues: Esophagus, NOS Procedures: P53 (initial) KI-67 (add) PHYSICIAN & INSTITUTION [place] [address] SPECIMEN INFORMATION: Tissue Source: Distal esophagus biopsy Clinical Info: Collagenous colitis, Groves's esophagus Specimen Number: [id number] CPT code: 70308,45049 METHODOLOGY: Deparaffinized sections of prefer/formalin-fixed tissue or PAP/DQ stained slides are incubated with monoclonal/polyclonal antibodies/oligonucleotide probes. Localization is made via biotin free immunoperoxidase method. Appropriate controls are performed and reacted as expected. Results on target cell population are indicated in the following table: RESULTS: ANTIBODY / CLONE RESULT P53 (DO-7) negative (null pattern) Ki-67 (30-9) positive, low These tests were developed and their performance characteristics determined by [facility]. They may not have been cleared or approved by the U.S. Food and Drug Administration. The FDA has determined that such clearance or approval is not necessary. The above immunohistochemical/dualISH markers are ordered and reviewed by the Pathologist. INTERPRETATION: Distal esophagus, biopsy: Negative for dysplasia. IVY/ 07/11/23
[2023-07-09 06:11] VITALS: BP 130/93; PULSE 62; RESP 17; TEMP 36.5; O2SAT 99; BMI 25.5
[2023-07-09] MEDS: Lactated Ringers 1,000 ML 15 ML IV (06:14)
--- NOTE | 2023-07-09 06:30 | ESO_PTH ---
PATIENT: PRECIOUS LIAO LOC: EN U#:[id number] AGE/SX: 63/M ROOM: RE07/09/[address]: Dr. Jesse Weller DO : 1960 BED: DIS: 07/09/2023 SPEC #: [id number] RECD: 07/09/23 11:08 STATUS: ZHENG NALDO #: [id number] NAVA: 07/09/23 06:[address]: Jesse Weller DEPT: SURGICAL PATHOLOGY RECD BY: Zhen Alexis ENTERED: 07/09/23 13:34 SP TYPE: IGNACIA STOREY DR: Dr. Franko Mann DO Tissues: Esophagus, NOS Procedures: Special Stain Group II Surgery Specimen Level IV Alcian Blue/PAS (control) HEADER OPERATION: Colonoscopy, EGD with biopsy PRE-OP DIAGNOSIS: Collagenous colitis, Groves's esophagus TISSUE SUBMITTED: Distal esophagus biopsy MICROSCOPIC DIAGNOSIS Distal esophagus, biopsy: Fragments of gastroesophageal mucosa with focal intestinal metaplasia (goblet cell metaplasia), consistent with Groves's esophagus. Chronic inflammation. Negative for dysplasia. See comment. IVY/ 07/10/23 COMMENT Alcian blue/PAS stain with matched control is used in the evaluation of the specimen. Immunohistochemistry ([id number]) for P53 and Ki-67 will be performed and results will be reported separately. The specimen predominantly consists of gastric mucosa. MICROSCOPIC DESCRIPTION Slides are reviewed. GROSS DESCRIPTION Received in fixative is one container labeled with the patient's name and designated Distal esophagus biopsy. The specimen consists of multiple irregular fragments of light echeverria soft tissue that in aggregate measure 1.5 x 1.0 x 0.1 cm. The specimen is totally submitted in one cassette. DOTTY/ 07/09/2023 TC:5 CPT:73827,07415
--- NOTE | 2023-07-09 06:51 | HP.PCM_ITS ---
History and Physical Date of Admission: 07/09/23 Chief Complaint: f/u collagenous colitis Details: PRECIOUS LIAO, is a 62 M who presents to the office today for f/u EGD and colonoscopy which were indicated for hx Groves's esophagus and collagenous colitis. 06/2022 EGD is again positive for Groves's esophagus, negative dysplasia. I thought he was on a PPI but he wasn't, so he is now taking pantoprazole 40 mg qam. 06/2022 Colonoscopy is again positive for collagenous colitis. No pathology in TI or duodenum. He has done lots of research on both conditions. Takes VH3 probiotic. No longer needs colestipol or cholestyramine. Bowels are normal. Has Fodzyme he will try so he can eat onions, garlic etc His weight is stable.? He eats a healthy diet and exercises regularly. ROS Const Constitutional: No fatigue ENT ENT: No difficulty swallowing Gastro GI: No abdominal pain, belching, bloating, change in bowel habits, change in stool character, coffee ground emesis, constipation, cramping, diarrhea, heartburn, difficulty swallowing, feeling full early, excessive flatus, incontinent of stools, Vomiting blood/hematemesis, Blood in stool, loose stools, Black,tarry stools, nausea/dyspepsia, pain with swallowing, vomiting or other Musc Musculoskeletal: No joint pain Skin Skin: No yellowing of the eye or itchy eyes Psych Psychiatric: No anxiety and No depression Endo Endocrine: No fatigue Aller/Imm Allergy/Immunologic: No itchy eyes Zak/Lymp Hematologic/Lymphatic: No easy bleeding or easy bruising Exam Const General: cooperative, healthy appearing and comfortable Orientation: alert, awake and oriented x3 Quality Reporting Tobacco Screening ([facility] 138) Smoking Status: Current some day smoker Assessment and Plan Assessment and Plan (1) Collagenous colitis: Status: Chronic Plan: Now controlled with diet Dr Weller recommends repeat colonoscopy one yr (2) Groves esophagus: Status: Chronic Plan: Reviewed endoscopy findings Pantoprazole 40 mg qam repeat egd one yr Medications: Changed From pantoprazole 40 mg PO DAILY 30 tabs 3RF To pantoprazole 40 mg PO QAM 90 tabs 3RF Discontinued pantoprazole Discontinued Reason: Duplicate Order 40 mg PO DAILY 30 tabs 2RF I have examined the patient and the H&P has been reviewed. There are no clinical changes since date of exam.
[2023-07-09 07:25] VITALS: BP 130/93; BP 94/50; PULSE 62; RESP 12; TEMP 36.2; O2SAT 99
[2023-07-09 07:30] VITALS: BP 100/56; BP 130/93; PULSE 59; RESP 18; O2SAT 100
--- NOTE | 2023-07-09 07:30 | OP.EGD_ITS ---
Patient Name: Lexa Chavez Procedure Date: 07/09/2023 6:25 AM Date of : 1960 Age: 63 Procedure: Upper GI endoscopy Indications: Heartburn, Groves's esophagus Providers: Jesse Weller DO Referring MD: Franko Mann Medicines: Monitored Anesthesia Care Patient Profile: This is a 63 year old male. Refer to note in patient chart for documentation of history and physical. Patient has symptoms of chronic cough and chronic heartburn. Complications: No immediate complications. Procedure: Pre-Anesthesia Assessment: - Prior to the procedure, a History and Physical was performed, and patient medications and allergies were reviewed. The risks and benefits of the procedure and the sedation options and risks were discussed with the patient. All questions were answered and informed consent was obtained. Patient identification and proposed procedure were verified by the physician in the pre-procedure area. Mental Status Examination: normal. Prophylactic Antibiotics: The patient does not require prophylactic antibiotics. Prior Anticoagulants: The patient has taken no anticoagulant or antiplatelet agents. After reviewing the risks and benefits, the patient was deemed in satisfactory condition to undergo the procedure. The anesthesia plan was to use monitored anesthesia care (MAC). Immediately prior to administration of medications, the patient was re-assessed for adequacy to receive sedatives. The heart rate, respiratory rate, oxygen saturations, blood pressure, adequacy of pulmonary ventilation, and response to care were monitored throughout the procedure. The physical status of the patient was re-assessed after the procedure. After obtaining informed consent, the endoscope was passed under direct vision. Throughout the procedure, the patient's blood pressure, pulse, and oxygen saturations were monitored continuously. The Colonoscope was introduced through the mouth, and advanced to the second part of duodenum. The upper GI endoscopy was accomplished without difficulty. The patient tolerated the procedure well. Scope In: 6:54:54 AM Scope Out: 6:57:57 AM Total Procedure Duration Time 0 hours 3 minutes 3 seconds Findings: There were esophageal mucosal changes secondary to established short-segment Groves's disease present in the lower third of the esophagus. The maximum longitudinal extent of these mucosal changes was 3 cm in length. Mucosa was biopsied with a cold forceps for histology in a targeted manner at intervals of 1 cm in the lower third of the esophagus. One specimen bottle was sent to pathology. Verification of patient identification for the specimen was done. Estimated blood loss was minimal. A small hiatal hernia was present. The entire examined stomach was normal. The duodenal bulb was normal. Impression: - Esophageal mucosal changes secondary to established short-segment Groves's disease. Biopsied. - Small hiatal hernia. - Normal stomach. - Normal duodenal bulb. Recommendation: - Discharge patient to home. - Resume previous diet. - Continue present medications. - Await pathology results. - Repeat upper endoscopy. Procedure Code(s): --- Professional --- 67845, Esophagogastroduodenoscopy, flexible, transoral; with biopsy, single or multiple CPT copyright 2021 [employer]. All rights reserved. The codes documented in this report are preliminary and upon funeral planner review may be revised to meet current compliance requirements. Jesse Weller DO 07/09/2023 7:29:49 AM This report has been signed electronically. Number of Addenda: 0 Note Initiated On: 07/09/2023 6:25 AM
--- NOTE | 2023-07-09 07:30 | OP.CCLET_ITS ---
07/09/2023 Franko Mann [address] [place] [address] Re : Upper GI endoscopy procedure for Lexa Chavez Dear Dr. Mann This procedure was performed on Sunday, July 09, 2023. My impressions and recommendations are as follows: Impressions : - Esophageal mucosal changes secondary to established short-segment Groves's disease. Biopsied. - Small hiatal hernia. - Normal stomach. - Normal duodenal bulb. Recommendations : - Discharge patient to home. - Resume previous diet. - Continue present medications. - Await pathology results. - Repeat upper endoscopy. My findings are described in the full procedure note, which is enclosed. If I can be of further assistance, please feel free to contact me at . Sincerely, Jesse Weller, 07/09/2023 7:29:49 AM This report has been signed electronically.
--- NOTE | 2023-07-09 07:32 | OP.COLON_ITS ---
Patient Name: Lexa Chavez Procedure Date: 07/09/2023 6:58 AM Date of : 1960 Age: 63 Procedure: Colonoscopy Indications: Diarrhea (secondary to noninfectious colitis) Providers: Jesse Weller DO Referring MD: Franko Mann Medicines: Monitored Anesthesia Care Patient Profile: This is a 63 year old male. Refer to note in patient chart for documentation of history and physical. Patient has symptoms of chronic cough and chronic heartburn. Last Colonoscopy: 1 year ago. Complications: No immediate complications. Procedure: Pre-Anesthesia Assessment: - Prior to the procedure, a History and Physical was performed, and patient medications and allergies were reviewed. The risks and benefits of the procedure and the sedation options and risks were discussed with the patient. All questions were answered and informed consent was obtained. Patient identification and proposed procedure were verified by the physician in the pre-procedure area. Mental Status Examination: normal. Prophylactic Antibiotics: The patient does not require prophylactic antibiotics. Prior Anticoagulants: The patient has taken no anticoagulant or antiplatelet agents. After reviewing the risks and benefits, the patient was deemed in satisfactory condition to undergo the procedure. The anesthesia plan was to use monitored anesthesia care (MAC). Immediately prior to administration of medications, the patient was re-assessed for adequacy to receive sedatives. The heart rate, respiratory rate, oxygen saturations, blood pressure, adequacy of pulmonary ventilation, and response to care were monitored throughout the procedure. The physical status of the patient was re-assessed after the procedure. After I obtained informed consent, the scope was passed under direct vision. Throughout the procedure, the patient's blood pressure, pulse, and oxygen saturations were monitored continuously. The Colonoscope was introduced through the anus and advanced to the terminal ileum. The colonoscopy was performed without difficulty. The patient tolerated the procedure well. The quality of the bowel preparation was adequate. The ileocecal valve, appendiceal orifice, and rectum were photographed. Scope In: 6:59:16 AM Scope Withdrawal Time 0 hours 6 minutes 1 second Scope Out: 7:20:05 AM Total Procedure Duration Time 0 hours 20 minutes 49 seconds Findings: The perianal and digital rectal examinations were normal. Patchy mild mucosal changes were found in the sigmoid colon, at the splenic flexure, in the transverse colon and at the hepatic flexure. Impression: - Patchy mild mucosal changes were found in the sigmoid colon, at the splenic flexure, in the transverse colon and at the hepatic flexure secondary to colitis. - No specimens collected. Recommendation: - Discharge patient to home. - Resume previous diet. - Continue present medications. - Repeat colonoscopy in 3 years for surveillance. Procedure Code(s): --- Professional --- 47357, Colonoscopy, flexible; diagnostic, including collection of specimen(s) by brushing or washing, when performed (separate procedure) CPT copyright 2021 [employer]. All rights reserved. The codes documented in this report are preliminary and upon gas main and line fitter review may be revised to meet current compliance requirements. Jesse Weller DO 07/09/2023 7:32:38 AM This report has been signed electronically. Number of Addenda: 0 Note Initiated On: 07/09/2023 6:58 AM
--- NOTE | 2023-07-09 07:33 | OP.CCLET_ITS ---
07/09/2023 Franko Mann [address] [place] [address] Re : Colonoscopy procedure for Lexa Chavez Dear Dr. Mann This procedure was performed on Sunday, July 09, 2023. My impressions and recommendations are as follows: Impressions : - Patchy mild mucosal changes were found in the sigmoid colon, at the splenic flexure, in the transverse colon and at the hepatic flexure secondary to colitis. - No specimens collected. Recommendations : - Discharge patient to home. - Resume previous diet. - Continue present medications. - Repeat colonoscopy in 3 years for surveillance. My findings are described in the full procedure note, which is enclosed. If I can be of further assistance, please feel free to contact me at . Sincerely, Jesse Weller, 07/09/2023 7:32:38 AM This report has been signed electronically.
[2023-07-09 07:35] VITALS: BP 114/62; BP 130/93; PULSE 76; RESP 18; O2SAT 100
[2023-07-09 07:40] VITALS: BP 122/65; BP 130/93; PULSE 66; RESP 14; TEMP 35.9; O2SAT 100
[2023-07-09 08:01] VITALS: BP 130/93
== END 2023-07-09 08:07 | disposition home or self-care (01) ==
LOC: EN 05:31 → AC 05:32
PROVIDERS: PCP Student in an Organized Health Care Education/Training Program; Referring Provider Student in an Organized Health Care Education/Training Program; Visit Provider Internal Medicine Gastroenterology
PROC: 0DJD8ZZ Inspection of Lower Intestinal Tract, Via Natural or Artificial Opening Endoscopic (ICD-10-PCS; CPT 45378; principal; 2023-07-09 06:25)
DX: K21.00 Gastro-esophageal reflux disease with esophagitis, without bleeding (principal); F17.200 Nicotine dependence, unspecified, uncomplicated; K22.70 Barrett's esophagus without dysplasia; K52.831 Collagenous colitis; K44.9 Diaphragmatic hernia without obstruction or gangrene; Z87.19 Personal history of other diseases of the digestive system
CPT/HCPCS: 45378; 43239; 88305; 88313; 88341; 88342; J7120; J2405